=== PATIENT | female | born 1950 | race African-American/Black ===

== ENCOUNTER 2017-09-22 05:31 | Inpatient (IN) ==
[2017-09-13 15:02] LABS: Basophils % 0.6 % (0.0-0.8); Eosinophils # 0.1 10*3/uL (0.0-0.87); Hematocrit 38.5 VOL% (35.7-47.0); Hemoglobin 12.5 GM/DL (12.0-16.0); Immature Granulocytes % 0.2 %; Immature Granulocytes Absolute 0.01 #; Lymphocytes # 2.3 10*3/uL (1.4-4.0); Lymphocytes % 41.9 % (21.3-54.2); Mean Corpuscular HGB Conc 32.5 GM/DL (32-36); Mean Corpuscular Hemoglobin 29 PG (27-34); Mean Corpuscular Volume 87.7 FL (87-102); Mean Platelet Volume 10.4 FL (9.6-12.0); Monocytes # 0.5 10*3/uL (0.11-0.8); Neutrophils # 2.5 10*3/uL (1.4-7.4); Neutrophils % 45.3 % (38.7-73.9); Platelet Count 189 T/CUMM (130-400); Red Blood Count 4.39 MC/CUMM (3.8-5.5); Red Cell Distribution Width 13.7 % (9.3-17.3); White Blood Count 5.4 T/CUMM (4-12)
[2017-09-13 15:11] LABS: PT Patient Result 10.8 SECS; Partial Thromboplastin Time 29.4 SECS (0-40)
[2017-09-13 15:15] LABS: Apearance,Urine CLEAR (Clear); Bilirubin,Urine Negative (Negative); Blood, Urine Negative (Negative); Glucose,Urine (UA) Negative (Negative); Ketones,Urine Negative (Negative); Mucus,Urine Occasional /LPF (Occasional); Nitrite,Urine Negative (Negative); Protein,Urine Negative; RBC,Urine <1 /HPF (0-4); Squamous Epithelial Cell,Urine Occasional /HPF (0-10); Urine Color Straw (Yellow); Urine Specific Gravity 1.008 (1.001-1.035); Urine Urobilinogen < 2.0 EU/DL (0.2-1.0); WBC,Urine <1 /HPF (0-6)
[2017-09-13 15:25] LABS: Bilirubin,Total 0.4 MG/DL (0.2-1.0); Calcium 9.1 MG/DL (8.5-10.1); Osmolality,Calculated 276.7 MOS/KG (273-304); Total Protein 7.5 G/DL (6.4-8.3)
[2017-09-22] MEDS ORDERED: DIAZEPAM 5 MG TABLET PO ONE (06:00)
[2017-09-22] MEDS ORDERED: FAMOTIDINE 20 MG TABLET PO ONE (06:00)
[2017-09-22] MEDS ORDERED: CLINDAMYCIN INJ 50 ML IV ONE (06:03)
[2017-09-22] MEDS ORDERED: VANCOMYCIN 1,000 MG VIAL ONE (06:03)
[2017-09-22] MEDS ORDERED: ceFAZolin 1,000 MG in SYRINGE 1 EACH IV ONE (07:00)
[2017-09-22] MEDS ORDERED: VANCOMYCIN INJ 1,000 MG in SODIUM CHLORIDE 0.9% 250 ML IV ONE (07:00)
[2017-09-22] MEDS: LACTATED RINGERS 1,000 ML IV SCH ×3 (07:11→22:12)
[2017-09-22] MEDS ORDERED: FAMOTIDINE 20 MG TABLET ONE (07:21)
[2017-09-22] MEDS ORDERED: DIAZEPAM 5 MG TABLET ONE (07:21)
[2017-09-22 10:31] LABS: Apearance,Urine CLEAR (Clear); Bilirubin,Urine Negative (Negative); Blood, Urine Negative (Negative); Glucose,Urine (UA) Negative (Negative); Ketones,Urine Negative (Negative); Nitrite,Urine Negative (Negative); Protein,Urine Negative; RBC,Urine 1 /HPF (0-4); Urine Color Straw (Yellow); Urine Specific Gravity 1.005 (1.001-1.035); Urine Urobilinogen < 2.0 EU/DL (0.2-1.0); WBC,Urine <1 /HPF (0-6)
[2017-09-22] MEDS ORDERED: oxyCODONE IR 5 MG TABLET PO PRN ×2 (11:10)
[2017-09-22] MEDS ORDERED: BISACODYL 10 MG SUPP RECTAL PRN (11:10)
[2017-09-22] MEDS ORDERED: diphenhydrAMINE CAP 25 MG CAPSULE PO PRN (11:10)
[2017-09-22] MEDS ORDERED: PROMETHAZINE 25 MG/1 ML VIAL IM PRN (11:10)
[2017-09-22] MEDS ORDERED: NALOXONE 0.4 MG/ML VIAL IV PRN (11:10)
[2017-09-22] MEDS ORDERED: MORPHINE 2 MG/1 ML SYRINGE IV PRN (11:10)
[2017-09-22] MEDS ORDERED: LACTULOSE 20 GM/30 ML UDCUP PO PRN (11:10)
[2017-09-22] MEDS ORDERED: MAGNESIUM HYDROXIDE SUSP 30 ML UDCUP PO PRN (11:10)
[2017-09-22] MEDS ORDERED: TEMAZEPAM 7.5 MG CAPSULE PO PRN (11:10)
[2017-09-22] MEDS ORDERED: CYCLOBENZAPRINE 10 MG TABLET PO PRN (11:14)
[2017-09-22] MEDS ORDERED: SUGAMMADEX 200 MG/2 ML VIAL IV ONE (11:23)
[2017-09-22] MEDS ORDERED: PROPOFOL 200 MG/20 ML VIAL IV ONE (11:31)
[2017-09-22] MEDS ORDERED: METOPROLOL TARTRATE 5 MG/5 ML VIAL IV ONE (11:32)
[2017-09-22] MEDS ORDERED: hydrALAZINE 20 MG/1 ML VIAL ONE (11:32)
[2017-09-22] MEDS ORDERED: ACETAMINOPHEN 1,000 MG/100 ML VIAL IV ONE (11:32)
[2017-09-22] MEDS ORDERED: MIDAZOLAM 2 MG/2 ML VIAL ONE (11:32)
[2017-09-22] MEDS ORDERED: PHENYLEPHRINE 1 MG/10 ML SYRINGE IV ONE (11:32)
[2017-09-22] MEDS ORDERED: SEVOFLURANE 1 UNIT/15 MINUTE INH ONE (11:32)
[2017-09-22] MEDS ORDERED: fentaNYL 100 MCG/2 ML VIAL ONE ×2 (11:32)
[2017-09-22] MEDS ORDERED: ROCURONIUM 100 MG/10 ML VIAL IV ONE (11:33)
[2017-09-22] MEDS: ONDANSETRON 4 MG/2 ML VIAL IV PRN ×4 (11:50→22:16)
[2017-09-22] MEDS: ceFAZolin 1,000 MG in SYRINGE 1 EACH IV SCH ×2 (14:48→22:36)
[2017-09-22] MEDS: MORPHINE PCA 30 MG/30 ML SYRINGE IV SCH (14:56)
[2017-09-22] MEDS: DOCUSATE SODIUM 100 MG CAPSULE PO SCH (22:05)
[2017-09-22] MEDS: FONDAPARINUX 2.5 MG/0.5 ML SYRINGE SUBCUT SCH (22:06)
[2017-09-22] MEDS: CARVEDILOL 12.5 MG TABLET PO SCH (22:06)
[2017-09-23 05:50] LABS: Basophils % 0.3 % (0.0-0.8); Eosinophils % 0.2 % (0.00-10.9); Hematocrit 34.8 VOL% (35.7-47.0); Hemoglobin 11.5 GM/DL (12.0-16.0); Immature Granulocytes % 0.6 %; Immature Granulocytes Absolute 0.06 #; Lymphocytes # 1.4 10*3/uL (1.4-4.0); Lymphocytes % 14.6 % (21.3-54.2); Mean Corpuscular Hemoglobin 29 PG (27-34); Mean Corpuscular Volume 86.6 FL (87-102); Mean Platelet Volume 11.1 FL (9.6-12.0); Monocytes % 10.1 % (1.7-12.7); Neutrophils # 7.2 10*3/uL (1.4-7.4); Neutrophils % 74.2 % (38.7-73.9); Platelet Count 172 T/CUMM (130-400); Red Blood Count 4.02 MC/CUMM (3.8-5.5); Red Cell Distribution Width 13.2 % (9.3-17.3); White Blood Count 9.8 T/CUMM (4-12)
[2017-09-23 06:25] LABS: Calcium 8.2 MG/DL (8.5-10.1); Osmolality,Calculated 265.2 MOS/KG (273-304); Potassium 3.4 MMOL/L (3.5-5.1)
[2017-09-23 06:34] LABS: Calcium 8.1 MG/DL (8.5-10.1); Osmolality,Calculated 263.4 MOS/KG (273-304); Potassium 3.4 MMOL/L (3.5-5.1)
[2017-09-23] MEDS: DOCUSATE SODIUM 100 MG CAPSULE PO SCH ×2 (09:07→21:10)
[2017-09-23] MEDS: hydroCHLOROthiazide 25 MG TABLET PO SCH (09:07)
[2017-09-23] MEDS: CARVEDILOL 12.5 MG TABLET PO SCH ×2 (09:08→21:10)
[2017-09-23] MEDS: CETIRIZINE 10 MG TABLET PO SCH (09:08)
[2017-09-23] MEDS: ASPIRIN EC 81 MG TABLET PO SCH (09:08)
[2017-09-23] MEDS: PANTOPRAZOLE 40 MG TABLET PO SCH (09:08)
[2017-09-23] MEDS: SPIRONOLACTONE 25 MG TABLET PO SCH (09:08)
[2017-09-23] MEDS: ONDANSETRON 4 MG/2 ML VIAL IV PRN (09:09)
[2017-09-23] MEDS: ROSUVASTATIN 20 MG TABLET PO SCH (09:25)
[2017-09-23] MEDS: MECLIZINE 25 MG TABLET PO SCH (09:26)
[2017-09-23] MEDS ORDERED: ACETAMINOPHEN 325 MG TABLET PO PRN (11:12)
[2017-09-23] MEDS ORDERED: POTASSIUM CHLORIDE 20 MEQ TABLET PO ONE (11:19)
[2017-09-23] MEDS: LACTATED RINGERS 1,000 ML IV SCH (18:05)
[2017-09-23] MEDS: FONDAPARINUX 2.5 MG/0.5 ML SYRINGE SUBCUT SCH (21:10)
[2017-09-24] MEDS: LACTATED RINGERS 1,000 ML IV SCH (03:00)
[2017-09-24 05:37] LABS: Basophils % 0.3 % (0.0-0.8); Eosinophils % 0.1 % (0.00-10.9); Hematocrit 32.5 VOL% (35.7-47.0); Hemoglobin 10.6 GM/DL (12.0-16.0); Immature Granulocytes % 0.4 %; Immature Granulocytes Absolute 0.05 #; Lymphocytes # 1.6 10*3/uL (1.4-4.0); Lymphocytes % 13.7 % (21.3-54.2); Mean Corpuscular HGB Conc 32.6 GM/DL (32-36); Mean Corpuscular Hemoglobin 28 PG (27-34); Mean Platelet Volume 10.6 FL (9.6-12.0); Monocytes # 1.6 10*3/uL (0.11-0.8); Monocytes % 13.9 % (1.7-12.7); Neutrophils # 8.1 10*3/uL (1.4-7.4); Neutrophils % 71.6 % (38.7-73.9); Platelet Count 152 T/CUMM (130-400); Red Blood Count 3.78 MC/CUMM (3.8-5.5); Red Cell Distribution Width 13.3 % (9.3-17.3); White Blood Count 11.3 T/CUMM (4-12)
[2017-09-24] MEDS: hydroCHLOROthiazide 25 MG TABLET PO SCH (09:36)
[2017-09-24] MEDS: CETIRIZINE 10 MG TABLET PO SCH (09:37)
[2017-09-24] MEDS: ASPIRIN EC 81 MG TABLET PO SCH (09:37)
[2017-09-24] MEDS: DOCUSATE SODIUM 100 MG CAPSULE PO SCH ×2 (09:37→21:14)
[2017-09-24] MEDS: PANTOPRAZOLE 40 MG TABLET PO SCH (09:37)
[2017-09-24] MEDS: CARVEDILOL 12.5 MG TABLET PO SCH ×2 (09:38→21:14)
[2017-09-24] MEDS: SPIRONOLACTONE 25 MG TABLET PO SCH (09:38)
[2017-09-24] MEDS: ONDANSETRON 4 MG/2 ML VIAL IV PRN (09:39)
[2017-09-24] MEDS: ROSUVASTATIN 20 MG TABLET PO SCH ×2 (13:56→21:14)
[2017-09-24] MEDS: MECLIZINE 25 MG TABLET PO SCH ×2 (13:56→21:14)
[2017-09-24] MEDS: NAPROXEN 250 MG TABLET PO PRN (18:59)
[2017-09-24] MEDS: FONDAPARINUX 2.5 MG/0.5 ML SYRINGE SUBCUT SCH (21:14)
[2017-09-25] MEDS: SPIRONOLACTONE 25 MG TABLET PO SCH (10:22)
[2017-09-25] MEDS: DOCUSATE SODIUM 100 MG CAPSULE PO SCH ×2 (10:22→21:08)
[2017-09-25] MEDS: PANTOPRAZOLE 40 MG TABLET PO SCH (10:23)
[2017-09-25] MEDS: CARVEDILOL 12.5 MG TABLET PO SCH ×2 (10:23→21:08)
[2017-09-25] MEDS: CETIRIZINE 10 MG TABLET PO SCH (10:23)
[2017-09-25] MEDS: hydroCHLOROthiazide 25 MG TABLET PO SCH (10:23)
[2017-09-25] MEDS: ASPIRIN EC 81 MG TABLET PO SCH (10:23)
[2017-09-25] MEDS: NAPROXEN 250 MG TABLET PO PRN (13:47)
[2017-09-25] MEDS: ONDANSETRON 4 MG/2 ML VIAL IV PRN (13:52)
[2017-09-25] MEDS: ROSUVASTATIN 20 MG TABLET PO SCH (21:08)
[2017-09-25] MEDS: FONDAPARINUX 2.5 MG/0.5 ML SYRINGE SUBCUT SCH (21:08)
[2017-09-25] MEDS: MECLIZINE 25 MG TABLET PO SCH (21:08)
[2017-09-26] MEDS: MORPHINE PCA 30 MG/30 ML SYRINGE IV SCH (07:39)
[2017-09-26] MEDS: PANTOPRAZOLE 40 MG TABLET PO SCH (08:47)
[2017-09-26] MEDS: SPIRONOLACTONE 25 MG TABLET PO SCH (08:47)
[2017-09-26] MEDS: hydroCHLOROthiazide 25 MG TABLET PO SCH (08:47)
[2017-09-26] MEDS: CARVEDILOL 12.5 MG TABLET PO SCH (08:47)
[2017-09-26] MEDS: ASPIRIN EC 81 MG TABLET PO SCH (08:47)
[2017-09-26] MEDS: CETIRIZINE 10 MG TABLET PO SCH (08:48)
[2017-09-26] MEDS: DOCUSATE SODIUM 100 MG CAPSULE PO SCH (08:48)
[2017-09-26 11:17] VITALS: BP 135/89
[2017-09-26] MEDS: ONDANSETRON 4 MG/2 ML VIAL IV PRN (11:39)
== END 2017-09-26 17:00 | disposition home health service (06) | DRG 470 ==
LOC: N.OR 05:31 → N.SDSINP 05:32 → N.3E 12:32
PROVIDERS: ADMIT Orthopaedic Surgery; ATTEND Orthopaedic Surgery

== ENCOUNTER 2019-08-09 08:16 | Inpatient (IN) ==
[2019-08-09] MEDS ORDERED: ASPIRIN 325 MG TABLET PO STA (08:38)
[2019-08-09] MEDS ORDERED: MORPHINE 4 MG/1 ML VIAL IV STA ×2 (08:38→11:19)
[2019-08-09] MEDS ORDERED: ONDANSETRON 4 MG/2 ML VIAL IV STA ×2 (08:38→11:19)
[2019-08-09 08:45] LABS: Basophils # 0.1 10*3/uL (0.0-0.2); Basophils % 0.5 % (0.0-0.8); Eosinophils # 0.1 10*3/uL (0.0-0.87); Hematocrit 34.6 VOL% (35.7-47.0); Hemoglobin 10.5 GM/DL (12.0-16.0); Immature Granulocytes % 0.7 %; Immature Granulocytes Absolute 0.07 #; Lymphocytes % 38.9 % (21.3-54.2); Mean Corpuscular HGB Conc 30.3 GM/DL (32-36); Mean Corpuscular Volume 93.5 FL (87-102); Mean Platelet Volume 9.6 FL (9.6-12.0); Monocytes % 9.3 % (1.7-12.7); Neutrophils % 49.6 % (38.7-73.9); Platelet Count 339 T/CUMM (130-400); Red Cell Distribution Width 19.8 % (9.3-17.3); White Blood Count 10.4 T/CUMM (4-12)
[2019-08-09 08:53] LABS: INR 1.1; PT Patient Result 11.6 SECS (9.6-12.2); Partial Thromboplastin Time 27.8 SECS (20.8-36.0)
[2019-08-09 09:05] LABS: Albumin 2.8 G/DL (3.4-5.0); Bilirubin,Total 0.7 MG/DL (0.2-1.0); Calcium 8.9 MG/DL (8.5-10.1); Total Protein 7.7 G/DL (6.4-8.3)
[2019-08-09] MEDS ORDERED: PROMETHAZINE 25 MG/1 ML VIAL IM PRN (12:54)
[2019-08-09] MEDS ORDERED: ONDANSETRON 4 MG/2 ML VIAL IV PRN (12:54)
[2019-08-09] MEDS ORDERED: ACETAMINOPHEN 325 MG TABLET PO PRN (12:54)
[2019-08-09] MEDS ORDERED: PROMETHAZINE 25 MG TABLET PO PRN (12:54)
[2019-08-09] MEDS ORDERED: ZALEPLON 5 MG CAPSULE PO PRN (12:54)
[2019-08-09] MEDS ORDERED: traZODone 50 MG TABLET PO PRN (12:54)
[2019-08-09] MEDS: BENZONATATE 100 MG CAPSULE PO SCH ×2 (15:38→21:02)
[2019-08-09] MEDS: APIXABAN 5 MG TABLET PO SCH ×2 (15:38→21:01)
[2019-08-09] MEDS: CETIRIZINE 10 MG TABLET PO SCH (21:01)
[2019-08-09] MEDS: DOCUSATE SODIUM 100 MG CAPSULE PO SCH (21:01)
[2019-08-09] MEDS: ROSUVASTATIN 10 MG TABLET PO SCH (21:01)
[2019-08-09] MEDS: ASPIRIN EC 81 MG TABLET PO SCH (21:02)
[2019-08-10] MEDS: BENZONATATE 100 MG CAPSULE PO SCH ×3 (04:35→21:42)
[2019-08-10 06:22] LABS: Basophils # 0.1 10*3/uL (0.0-0.2); Basophils % 0.8 % (0.0-0.8); Eosinophils # 0.2 10*3/uL (0.0-0.87); Eosinophils % 2.7 % (0.00-10.9); Hematocrit 32.8 VOL% (35.7-47.0); Hemoglobin 9.8 GM/DL (12.0-16.0); Immature Granulocytes % 0.8 %; Immature Granulocytes Absolute 0.05 #; Lymphocytes # 1.9 10*3/uL (1.4-4.0); Mean Corpuscular HGB Conc 29.9 GM/DL (32-36); Mean Corpuscular Volume 95.1 FL (87-102); Mean Platelet Volume 11.1 FL (9.6-12.0); Monocytes % 10.7 % (1.7-12.7); Platelet Count 203 T/CUMM (130-400); Red Blood Count 3.45 MC/CUMM (3.8-5.5); Red Cell Distribution Width 19.4 % (9.3-17.3); White Blood Count 5.9 T/CUMM (4-12)
[2019-08-10 06:49] LABS: Band Neutrophils 1 % (0-10); Eosinophils 2 % (0-10); Lymphocytes 29 % (20-55); Platelet Estimate Normal; Segmented Neutrophils 58 % (50-85); Total Cells Counted 100
[2019-08-10 06:50] LABS: Anisocytosis 1+; Hypochromasia 2+; Macrocytosis 1+; Target Cells 1+
[2019-08-10 06:51] LABS: Albumin 2.4 G/DL (3.4-5.0); Bilirubin,Total 0.9 MG/DL (0.2-1.0); Calcium 8.2 MG/DL (8.5-10.1); Osmolality,Calculated 273.7 MOS/KG (273-304); Risk Ratio 2.14; Thyroid Stimulating Hormone 0.632 uIU/ml (0.358-3.74); Total Protein 6.4 G/DL (6.4-8.3); VLDL CHOLESTEROL 12.6 MG/DL
[2019-08-10] MEDS ORDERED: ENOXAPARIN 100 MG/ML SYRINGE SUBCUT ONE (08:07)
[2019-08-10] MEDS: NEBIVOLOL 5 MG TABLET PO SCH (09:18)
[2019-08-10] MEDS: APIXABAN 5 MG TABLET PO SCH (09:19)
[2019-08-10] MEDS: SPIRONOLACTONE 25 MG TABLET PO SCH (09:29)
[2019-08-10] MEDS: predniSONE 20 MG TABLET PO SCH (09:29)
[2019-08-10] MEDS: DOCUSATE SODIUM 100 MG CAPSULE PO SCH ×2 (09:29→21:42)
[2019-08-10] MEDS: hydroCHLOROthiazide 25 MG TABLET PO SCH (09:29)
[2019-08-10] MEDS ORDERED: SODIUM CHLORIDE 0.9% IV SCH (13:00)
[2019-08-10] MEDS ORDERED: ALTEPLASE IV SCH (13:00)
[2019-08-10] MEDS ORDERED: LIDOCAINE 1% 20 ML VIAL ONE (13:01)
[2019-08-10] MEDS ORDERED: HYDROmorphone 2 MG/1 ML VIAL ONE (13:02)
[2019-08-10] MEDS ORDERED: MIDAZOLAM 2 MG/2 ML VIAL ONE (13:02)
[2019-08-10] MEDS ORDERED: ONDANSETRON 4 MG/2 ML VIAL ONE (13:07)
[2019-08-10] MEDS: SODIUM CHLORIDE 0.9% 1,000 ML IV SCH (14:30)
[2019-08-10 18:36] LABS: Partial Thromboplastin Time 33.1 SECS (20.8-36.0)
[2019-08-10] MEDS: ASPIRIN EC 81 MG TABLET PO SCH (21:42)
[2019-08-10] MEDS: ROSUVASTATIN 10 MG TABLET PO SCH (21:42)
[2019-08-10] MEDS: CETIRIZINE 10 MG TABLET PO SCH (21:43)
[2019-08-10 22:15] LABS: Partial Thromboplastin Time 29.4 SECS (20.8-36.0)
[2019-08-11 04:21] LABS: Partial Thromboplastin Time 27.8 SECS (20.8-36.0)
[2019-08-11] MEDS: BENZONATATE 100 MG CAPSULE PO SCH ×3 (05:46→20:53)
[2019-08-11 07:17] LABS: Basophils % 0.6 % (0.0-0.8); Eosinophils # 0.2 10*3/uL (0.0-0.87); Eosinophils % 2.3 % (0.00-10.9); Hematocrit 33.7 VOL% (35.7-47.0); Hemoglobin 10.3 GM/DL (12.0-16.0); Immature Granulocytes % 0.6 %; Immature Granulocytes Absolute 0.04 #; Lymphocytes # 1.9 10*3/uL (1.4-4.0); Mean Corpuscular HGB Conc 30.6 GM/DL (32-36); Mean Corpuscular Volume 93.4 FL (87-102); Mean Platelet Volume 10.9 FL (9.6-12.0); Monocytes % 11.6 % (1.7-12.7); Neutrophils % 54.9 % (38.7-73.9); Platelet Count 293 T/CUMM (130-400); Red Blood Count 3.61 MC/CUMM (3.8-5.5); White Blood Count 6.4 T/CUMM (4-12)
[2019-08-11 07:41] LABS: Calcium 8.6 MG/DL (8.5-10.1); Osmolality,Calculated 269.8 MOS/KG (273-304)
[2019-08-11] MEDS: hydroCHLOROthiazide 25 MG TABLET PO SCH (09:47)
[2019-08-11] MEDS: predniSONE 20 MG TABLET PO SCH (09:48)
[2019-08-11] MEDS: NEBIVOLOL 5 MG TABLET PO SCH (09:48)
[2019-08-11] MEDS: SPIRONOLACTONE 25 MG TABLET PO SCH (09:48)
[2019-08-11] MEDS: APIXABAN 5 MG TABLET PO SCH ×2 (09:48→20:53)
[2019-08-11] MEDS: DOCUSATE SODIUM 100 MG CAPSULE PO SCH ×2 (09:49→20:52)
[2019-08-11 10:45] LABS: Partial Thromboplastin Time 29.9 SECS (20.8-36.0)
[2019-08-11] MEDS ORDERED: dilTIAZem Drip 125 MG/125 ML PREMIX IV SCH (19:00)
[2019-08-11] MEDS: SODIUM CHLORIDE 0.9% 1,000 ML IV SCH (19:29)
[2019-08-11] MEDS: ROSUVASTATIN 10 MG TABLET PO SCH (20:52)
[2019-08-11] MEDS: ASPIRIN EC 81 MG TABLET PO SCH (20:52)
[2019-08-11] MEDS: CETIRIZINE 10 MG TABLET PO SCH (20:53)
[2019-08-11] MEDS: MORPHINE 4 MG/1 ML VIAL IV PRN (20:53)
[2019-08-12] MEDS: BENZONATATE 100 MG CAPSULE PO SCH ×4 (07:46→23:18)
[2019-08-12] MEDS ORDERED: MAGNESIUM HYDROXIDE SUSP 30 ML UDCUP PO ONE (08:23)
[2019-08-12] MEDS: DOCUSATE SODIUM 100 MG CAPSULE PO SCH ×2 (09:33→21:31)
[2019-08-12] MEDS: APIXABAN 5 MG TABLET PO SCH ×2 (09:33→21:31)
[2019-08-12] MEDS: hydroCHLOROthiazide 25 MG TABLET PO SCH (09:36)
[2019-08-12] MEDS: SPIRONOLACTONE 25 MG TABLET PO SCH (09:36)
[2019-08-12] MEDS: predniSONE 20 MG TABLET PO SCH (09:37)
[2019-08-12] MEDS: NEBIVOLOL 5 MG TABLET PO SCH ×2 (09:43→10:25)
[2019-08-12 10:42] LABS: Basophils % 0.2 % (0.0-0.8); Eosinophils % 0.1 % (0.00-10.9); Hematocrit 34.1 VOL% (35.7-47.0); Hemoglobin 10.6 GM/DL (12.0-16.0); Immature Granulocytes % 0.8 %; Immature Granulocytes Absolute 0.14 #; Lymphocytes # 1.9 10*3/uL (1.4-4.0); Lymphocytes % 10.5 % (21.3-54.2); Mean Corpuscular HGB Conc 31.1 GM/DL (32-36); Mean Corpuscular Volume 91.7 FL (87-102); Mean Platelet Volume 10.6 FL (9.6-12.0); Monocytes % 9.4 % (1.7-12.7); Platelet Count 304 T/CUMM (130-400); Red Blood Count 3.72 MC/CUMM (3.8-5.5); Red Cell Distribution Width 18.6 % (9.3-17.3); White Blood Count 17.9 T/CUMM (4-12)
[2019-08-12 11:14] LABS: Calcium 8.4 MG/DL (8.5-10.1); Osmolality,Calculated 270.2 MOS/KG (273-304)
[2019-08-12] MEDS: LEVOFLOXACIN INJ 750 MG in PREMIX 1 EACH IV SCH (12:14)
[2019-08-12] MEDS: AZTREONAM 2,000 MG in SODIUM CHLORIDE 0.9% 100 ML IV SCH ×2 (14:43→21:31)
[2019-08-12] MEDS: ROSUVASTATIN 10 MG TABLET PO SCH (21:31)
[2019-08-12] MEDS: ASPIRIN EC 81 MG TABLET PO SCH (21:31)
[2019-08-12] MEDS: CETIRIZINE 10 MG TABLET PO SCH (21:31)
[2019-08-12] MEDS: SODIUM CHLORIDE 0.9% 1,000 ML IV SCH (23:15)
[2019-08-13] MEDS: AZTREONAM 2,000 MG in SODIUM CHLORIDE 0.9% 100 ML IV SCH (04:47)
[2019-08-13 05:19] LABS: Basophils # 0.1 10*3/uL (0.0-0.2); Basophils % 0.2 % (0.0-0.8); Eosinophils % 0.1 % (0.00-10.9); Hematocrit 32.1 VOL% (35.7-47.0); Hemoglobin 10.1 GM/DL (12.0-16.0); Immature Granulocytes % 0.9 %; Lymphocytes # 3.2 10*3/uL (1.4-4.0); Lymphocytes % 13.7 % (21.3-54.2); Mean Corpuscular HGB Conc 31.5 GM/DL (32-36); Mean Corpuscular Volume 90.7 FL (87-102); Mean Platelet Volume 11.4 FL (9.6-12.0); Monocytes % 10.7 % (1.7-12.7); Neutrophils % 74.4 % (38.7-73.9); Platelet Count 163 T/CUMM (130-400); Red Blood Count 3.54 MC/CUMM (3.8-5.5); White Blood Count 23.1 T/CUMM (4-12)
[2019-08-13 05:41] LABS: Calcium 8.5 MG/DL (8.5-10.1); Osmolality,Calculated 259.8 MOS/KG (273-304)
[2019-08-13 05:43] LABS: Hypochromasia 1+; Ovalocytes Slight; Platelet Estimate Adequate
[2019-08-13] MEDS: LINACLOTIDE 145 MCG CAPSULE PO SCH (06:38)
[2019-08-13] MEDS: SPIRONOLACTONE 25 MG TABLET PO SCH (08:53)
[2019-08-13] MEDS: BENZONATATE 100 MG CAPSULE PO SCH ×2 (08:53→17:05)
[2019-08-13] MEDS: hydroCHLOROthiazide 25 MG TABLET PO SCH (08:53)
[2019-08-13] MEDS: DOCUSATE SODIUM 100 MG CAPSULE PO SCH ×2 (08:53→21:29)
[2019-08-13] MEDS: APIXABAN 5 MG TABLET PO SCH ×2 (08:53→21:29)
[2019-08-13] MEDS: predniSONE 20 MG TABLET PO SCH (08:53)
[2019-08-13] MEDS: NEBIVOLOL 5 MG TABLET PO SCH (08:53)
[2019-08-13 10:41] LABS: Apearance,Urine CLEAR (Clear); Bacteria,Urine Occasional /HPF (Few); Bilirubin,Urine Negative (Negative); Blood, Urine Negative (Negative); Glucose,Urine (UA) Negative (Negative); Ketones,Urine Negative (Negative); Mucus,Urine Few /LPF (Occasional); Nitrite,Urine Negative (Negative); Protein,Urine Negative; RBC,Urine 1 /HPF (0-4); Squamous Epithelial Cell,Urine Occasional /HPF (0-10); Urine Color Amber (Yellow); Urine Specific Gravity 1.024 (1.001-1.035); Urine Urobilinogen < 2.0 EU/DL (0.2-1.0); WBC,Urine 10 /HPF (0-6)
[2019-08-13] MEDS: LEVOFLOXACIN INJ 750 MG in PREMIX 1 EACH IV SCH (10:48)
[2019-08-13] MEDS ORDERED: NEBIVOLOL 5 MG TABLET PO ONE (11:50)
[2019-08-13] MEDS ORDERED: SODIUM CHLORIDE 0.9% 500 ML IV ONE (12:53)
[2019-08-13] MEDS: guaiFENesin/DM ER 600-30 MG TABLET PO PRN (17:05)
[2019-08-13] MEDS: SODIUM CHLORIDE 0.9% 1,000 ML IV SCH (17:08)
[2019-08-13] MEDS: MORPHINE 4 MG/1 ML VIAL IV PRN (21:28)
[2019-08-13] MEDS: ASPIRIN EC 81 MG TABLET PO SCH (21:28)
[2019-08-13] MEDS: ROSUVASTATIN 10 MG TABLET PO SCH (21:29)
[2019-08-13] MEDS: CETIRIZINE 10 MG TABLET PO SCH (21:29)
[2019-08-14] MEDS: BENZONATATE 100 MG CAPSULE PO SCH ×2 (00:05→09:17)
[2019-08-14 05:25] LABS: Basophils % 0.2 % (0.0-0.8); Eosinophils % 0.1 % (0.00-10.9); Hematocrit 29.7 VOL% (35.7-47.0); Hemoglobin 9.4 GM/DL (12.0-16.0); Immature Granulocytes % 0.7 %; Immature Granulocytes Absolute 0.15 #; Lymphocytes # 2.5 10*3/uL (1.4-4.0); Lymphocytes % 12.2 % (21.3-54.2); Mean Corpuscular HGB Conc 31.6 GM/DL (32-36); Mean Corpuscular Volume 89.7 FL (87-102); Mean Platelet Volume 10.1 FL (9.6-12.0); Monocytes % 8.1 % (1.7-12.7); Neutrophils % 78.7 % (38.7-73.9); Platelet Count 247 T/CUMM (130-400); Red Blood Count 3.31 MC/CUMM (3.8-5.5); Red Cell Distribution Width 17.7 % (9.3-17.3); White Blood Count 20.4 T/CUMM (4-12)
[2019-08-14 05:45] LABS: Hypochromasia 1+; Lymphocytes 10 % (20-55); Ovalocytes Slight; Platelet Estimate Adequate; Segmented Neutrophils 78 % (50-85); Total Cells Counted 100
[2019-08-14 05:49] LABS: Calcium 8.6 MG/DL (8.5-10.1); Osmolality,Calculated 266.1 MOS/KG (273-304)
[2019-08-14] MEDS: LINACLOTIDE 145 MCG CAPSULE PO SCH (09:16)
[2019-08-14] MEDS: predniSONE 20 MG TABLET PO SCH (09:17)
[2019-08-14] MEDS: guaiFENesin/DM ER 600-30 MG TABLET PO PRN (09:17)
[2019-08-14] MEDS: SPIRONOLACTONE 25 MG TABLET PO SCH (09:17)
[2019-08-14] MEDS: hydroCHLOROthiazide 25 MG TABLET PO SCH (09:17)
[2019-08-14] MEDS: APIXABAN 5 MG TABLET PO SCH (09:18)
[2019-08-14] MEDS: DOCUSATE SODIUM 100 MG CAPSULE PO SCH (09:18)
[2019-08-14] MEDS: NEBIVOLOL 5 MG TABLET PO SCH (09:18)
[2019-08-14] MEDS ORDERED: SODIUM CHLORIDE 0.9% 500 ML IV ONE (10:17)
[2019-08-14] MEDS ORDERED: POTASSIUM CHLORIDE 20 MEQ TABLET PO ONE (10:18)
[2019-08-14 11:01] VITALS: BP 129/77
[2019-08-14] MEDS: SODIUM CHLORIDE 0.9% 1,000 ML IV SCH (11:18)
[2019-08-14] MEDS: LEVOFLOXACIN INJ 750 MG in PREMIX 1 EACH IV SCH (11:19)
[2019-08-14] MEDS ORDERED: DILTIAZEM CD 180 MG CAPSULE PO SCH (13:30)
[2019-08-14] MEDS ORDERED: NITROFURANTOIN MACRO/MONO 100 MG CAPSULE PO SCH (21:00)
[2019-08-16 16:21] LABS: DRVVT Screen Ratio 1.99 ratio (<1.20); INR 2.6 (0.9-1.1)
== END 2019-08-14 15:40 | disposition home health service (06) | DRG 300 ==
LOC: N.EDINP 08:16 → N.ED 08:16 → N.EDINP 13:21 → N.2W 14:17 → N.CC 08-10 14:27 → N.TELEN 08-11 15:07
PROVIDERS: ADMIT Internal Medicine; ATTEND Internal Medicine